=== PATIENT | female | born 1975 | race Two or more races ===

== ENCOUNTER → 2025-01-28 | Emergency (ER) | payer MEDICAID ==
[~2025-01-28] VITALS: Ht 165.1 cm; Wt 95.5 kg
[~2025-01-28] MED LIST: DAPA10TA PO; DULO-114 PO; HYDR25TA2 PO; IBUP-1492 PO; INSLAN SQ; INSU100V42 SQ; METF-1211 PO; OLME20TA73 PO; SEMA0.5P SQ; SEMA1PEN5 SQ
[2025-01-28 08:34] VITALS: BP 123/73; PULSE 102; RESP 18; TEMP 97.6; O2SAT 99
[2025-01-28] MEDS: IBUPROFEN 600 MG TABLET PO ONE (09:23)
[2025-01-28] MEDS: ONDANSETRON 4 MG TABLET PO ONE (09:24)
== END | disposition home or self-care (01) ==
LOC: EMS 08:31
DX: M79.631 Pain in right forearm (principal); M79.632 Pain in left forearm; E11.9 Type 2 diabetes mellitus without complications; I10 Essential (primary) hypertension; Z91.048 Other nonmedicinal substance allergy status; Z79.4 Long term (current) use of insulin; Z79.84 Long term (current) use of oral hypoglycemic drugs; Z79.899 Other long term (current) drug therapy
CPT/HCPCS: 99283; Q0162